=== PATIENT | male | born 2000 | race Caucasian/White ===

== ENCOUNTER → 2020-03-06 15:48 | Outpatient (BNVA) | payer BC, SELFPAY | PROVIDERS: Family Provider Nurse Practitioner Family; PCP Nurse Practitioner Family; Visit Provider Registered Nurse | DX: N20.0 Calculus of kidney (principal); R10.9 Unspecified abdominal pain | CPT/HCPCS: 81000 ==

== ENCOUNTER 2020-03-09 14:12 | Outpatient (CLI) | payer BC, SELFPAY ==
--- NOTE | 2020-03-09 14:30 | CT_ITS ---
WS: [id number] CT ABDOMEN AND PELVIS NONCONTRAST HISTORY: Bilateral flank and epigastric pain. TECHNIQUE: Imaging performed through the abdomen and pelvis. Coronal and sagittal reformats are submi tted. All CT scans at [facility] use at least one of these dose optimization techniques: automated exposure control; mA and/or kV adjustment per patient size (includes targeted exams where d ose is matched to clinical indication); or iterative reconstruction. DLP: 1474.99 mGy.cm COMPARISON: None available. Lower thorax: Lung bases are clear. No hiatal hernia. Liver: Moderate hepatic steatosis. Liver is not significantly enlarged. Gallbladder: Unremarkable. Pancreas: Normal. Spleen: Normal. Adrenal glands: Normal. Right kidney: Normal size with no stones, masses or atrophy. Left kidney: Normal size with no stones, mass or atrophy. Abdominal aorta and IVC are unremarkable. Small mesenteric and RIGHT lower quadrant lymph nodes. There are numerous lymph nodes present. Larges t lymph nodes measure around 9 mm. GI tract: Marked thinning of the stomach with fluid and food products. No GI tract obstruction. Lashell l appendix. Abdominal wall: Small fat-containing umbilical hernia. Pelvis: Normal. Osseous structures: Unremarkable. CT/CT kidney stone [id number] IMPRESSION: 1. Mesenteric and RIGHT lower quadrant subcentimeter but numerous lymph nodes. Consider mesenteric adenitis. 2. No renal obstruction or calcifications. 3. Normal appendix.
== END 2020-03-09 14:13 | disposition home or self-care (01) ==
LOC: RAD 14:13
PROVIDERS: PCP Nurse Practitioner Family; Visit Provider Registered Nurse
DX: R10.13 Epigastric pain (principal)
CPT/HCPCS: 74176

== ENCOUNTER 2021-01-06 14:14 | Outpatient (CLI) | payer OTHER, SELFPAY ==
--- NOTE | 2021-01-06 17:30 | MR_ITS ---
WS: [id number] MRI LEFT SHOULDER NONCONTRAST TECHNIQUE: Sagittal T2, coronal T1, T2 and proton density imaging. Axial gradient PDE imaging. CLINICAL INFORMATION: M25.512 - Pain in left shoulder COMPARISON: None. FINDINGS: Normal AC joint. Normal supraspinatus and infraspinatus. Normal teres minor. Mild thinning of the dis nuria subscapularis which appears intact. No acute rotator cuff tears. Diffuse synovial thickening about the glenohumeral joint with relatively small joint capsule. Synovia l thickening in the axillary recess. Findings suspicious for adhesive capsulitis in appropriate clini yobani setting. Synovial thickening worse about the anterior labrum with diffuse irregularity involving biceps labral anchor. Intra-articular biceps tendon is not visualized and suspicious for chronic high -grade tear. Normal biceps tendon is visualized in the bicipital groove. MR/MR shoulder LT wo con* [id number] IMPRESSION: 1. Rotator cuff is intact. No high-grade tear. 2. Mild diffuse thinning of the distal subscapularis tendon. 3. Small joint capsule suspicious for adhesive capsulitis in the appropriate c linical setting described above. 4. Diffuse chronic appearing irregularity of the anterior superior glenoid lab rum with associated synovial thickening and chronic appearing tear of the bicep s labral anchor. 5. Intra-articular biceps tendon is not well visualized likely chronically tor n. 6. Above constellation of findings likely due to chronic SLAP tear with extens ion to the biceps labral anchor with fibrosis and adhesive capsulitis. Recommen d correlation with history of shoulder injury.
== END 2021-01-06 14:15 | disposition home or self-care (01) ==
LOC: RADSHAW 14:18
PROVIDERS: PCP Nurse Practitioner Family; Visit Provider Nurse Practitioner Family
DX: S43.432A Superior glenoid labrum lesion of left shoulder, initial encounter (principal); X58.XXXA Exposure to other specified factors, initial encounter
CPT/HCPCS: 73221